=== PATIENT | female | born 2000 | race Caucasian/White ===

== ENCOUNTER 2025-07-18 11:26 | Inpatient (IN) ==
--- NOTE | 2025-07-18 12:08 | Emergency Department Note ---
Impression & Plan Multifocal pneumonia, Headache, Chest pain ED Provider Note NAME: SERVANDO LUBIN AGE: 24 SEX: Female INFORMANT: Patient ED PROVIDER(S): Juarez Torres MD CHIEF COMPLAINT: Chest pain and headache PLAN: Disposition: Admitted Outpatient prescription management: none Referral: None MEDICAL DECISION MAKING: Patient presented because of chest pain and headache. Headache was lancinating intermittent. Her ECG showed tachycardia without ischemia or pericarditis. Chest x-ray was concerning for rather significant pneumonia. Patient had a leukocytosis and elevated inflammatory markers. D-dimer was also elevated. Cardiac troponin negative. In light of the findings patient underwent CT and CT angiography of the head, neck as well as the chest. CT imaging of the head and neck negative. BioFire testing negative. On chest CT patient was found to have a multifocal pneumonia with some cavitation. Placed on isolation precautions. Cultures and QuantiFERON were also ordered. Patient was treated with IV cefepime, vancomycin, and doxycycline. She was also given a dose of IV Toradol. Reviewed the findings with the patient and mother. Patient had consultation made with the [facility] hospitalist service. Discussed case with Dr. Heaton. Reviewed the findings. She did evaluate the patient in the ER and admitted to her for further management. Care/management discussed with: ED pharmacist, hospitalist, facility operations manager Level of care consideration(s): After review of the information above and other included data, I feel the patient requires escalation of care to admission Triage Nursing notes: reviewed and agree them. Vital Signs: reviewed and remarkable for tachycardia Additional History obtained from: Patient's mother. No headache or pulmonary history in the family. Chronic Medical/Social Conditions affecting care: PCOS Prior/ Outside/ External records reviewed: none Differential Diagnosis: Infection, dehydration, metabolic abnormality, hypo/hyperglycemia, electrolyte disturbance, anemia, hypoxia, cardiac sources, intracerebral event, toxicologic, neurologic, as well as other pathologies. Diagnostics, independently interpreted by me: ECG: Twelve-lead ECG reveals a sinus tachycardia at [address] elevation or depression. No PACs PVCs. No pericarditis. Cardiac Monitoring: Cardiac monitoring ordered by me: The patient was placed on continuous cardiac monitoring and observed. It revealed a sinus tachycardia at 106 beats per minute without ectopy or evidence of dysrhythmia. Medical decision rules: none Imaging studies: X-ray and CT scans as above. HPI: 24 year old Female arrives for evaluation of chest pain and headache. This started 7 days ago and is intermittent for the headache and constant for chest pain for 48 hrs. Notes a fever of 101.5. The patient also notes the following associated symptoms, fatigue. The patient has used motrin for relieving factors. Current pain is rated as 5/10. Pain in head described as lancinating, sharp and lasts 1-5 second behind right ear. Pt denies LOC, visual changes, neck pain, chest pain, breathing difficulties, nausea, vomiting, abdominal pain, back pain, melena, hematochezia, urinary symptoms, numbness, weakness, lymphadenopathy, rash, or other complaints. PAST MEDICAL HISTORY: See Below, PCOS, anemia PAST SURGICAL HISTORY: See Below, cholecystectomy SOCIAL HISTORY: See Below, no smoking HOME MEDICATIONS: See Below ALLERGIES: See Below VITALS: See Below PHYSICAL EXAMINATION: GENERAL: Awake, alert, well-appearing, in no distress HENT: Normocephalic, atraumatic. Oropharynx unremarkable. EYES: Normal conjunctiva. Sclera non-icteric. PERRL, EOMI, Fundi normal. NECK: Inspection normal. Non-tender. Supple. No nuchal rigidity. FROM. No masses. RESPIRATORY: Clear to auscultation. No wheezes. No rales. Normal respiratory effort. CARDIAC: Normal rate. Normal rhythm. No murmurs. No rubs. Extremities warm and well perfused. Pulses equal. No JVD. GI: Soft, non-distended. No tenderness to palpation. No rebound or guarding. No masses. RECTAL: Deferred. MUSCULOSKELETAL: Atraumatic. Chest examination reveals no tenderness. The back is symmetrical on inspection without obvious abnormality. There is no CVA tenderness to palpation. No joint edema. LOWER EXTREMITIES: Calves are equal size bilaterally and non-tender. No edema. No discoloration. NEURO: Normal sensorium. No sensory or motor deficits noted. Speech normal. CN2-12 intact. No drift. SKIN: No rash or jaundice noted. PROCEDURES: none CRITICAL CARE: none OBSERVATION NOTE: none Past Med/Surg History Problem List (Updated 07/18/25 @ 19:42 by Juarez Torres MD) Multifocal pneumonia (Acute) Pleuritic chest pain Microcytic anemia Pulmonary cavitary lesion Chest pain (Acute) Headache (Acute) Medical History (Updated 07/18/25 @ 19:42 by Juarez Torres MD) Obesity Anemia PCOS (polycystic ovarian syndrome) Adenomyosis Surgical History (Updated 07/18/25 @ 16:05 by Annmarie Heaton MD) History of wisdom tooth extraction S/P cholecystectomy Family History (Updated 07/18/25 @ 16:06 by Annmarie Heaton MD) Other Hypertension Social History Smoking Status: Never smoker Second Hand Exposure: Yes (When she was living with parents); Hx Alcohol Use: No Hx Substance Use: No Preferred Language: Lao Rn Cardiac Rehab Required: No Beliefs That Will Affect Care: None Current Living Situation: Spouse and Family Feels Safe at Home: Yes Safety Concerns: Feels Safe At This Time Assistive Devices: None Allergies Allergies Allergy/AdvReac Type Severity Reaction Status Date / Time No Known Allergies Allergy Unverified 07/18/25 13:09 Home Meds Home Medications Medication Instructions Recorded Confirmed No Known Home Medications 07/18/25 07/18/25 Results & Data (ED) Vital Signs Vital Signs - 24 hr 07/18/25 11:27 07/18/25 11:28 07/18/25 11:45 Temperature 36.9 C Temperature Source Temporal Artery Scan Pulse Rate 111 H 104 H Pulse Rate from SpO2 Sensor Respiratory Rate 18 29 H Respiratory Effort / Characteristics Non-Labored Spontaneous Respiratory Depth Normal Respiratory Pattern Regular Blood Pressure 138/89 146/96 H Blood Pressure Mean 105 112 Pulse Oximetry 100 Oxygen Delivery Method Room Air Room Air Sepsis Recent Fever Within 48 Hours No Sepsis New/Unexplained Change in Mental Status N/A Sepsis Action Taken by Nursing No Action Required 07/18/25 11:49 07/18/25 11:53 07/18/25 12:31 Temperature Temperature Source Pulse Rate 104 H 98 H Pulse Rate from SpO2 Sensor Respiratory Rate 26 H Respiratory Effort / Characteristics Respiratory Depth Respiratory Pattern Blood Pressure 128/85 Blood Pressure Mean 91 Pulse Oximetry 96 99 Oxygen Delivery Method Sepsis Recent Fever Within 48 Hours Sepsis New/Unexplained Change in Mental Status Sepsis Action Taken by Nursing 07/18/25 13:00 07/18/25 14:06 07/18/25 14:53 Temperature Temperature Source Pulse Rate 96 H 98 H 111 H Pulse Rate from SpO2 Sensor 97 H 111 H Respiratory Rate 30 H 20 21 Respiratory Effort / Characteristics Respiratory Depth Respiratory Pattern Blood Pressure 123/71 119/83 123/69 Blood Pressure Mean 88 92 87 Pulse Oximetry 99 99 99 Oxygen Delivery Method Sepsis Recent Fever Within 48 Hours Sepsis New/Unexplained Change in Mental Status Sepsis Action Taken by Nursing 07/18/25 14:57 Temperature Temperature Source Pulse Rate Pulse Rate from SpO2 Sensor Respiratory Rate Respiratory Effort / Characteristics Respiratory Depth Respiratory Pattern Blood Pressure Blood Pressure Mean Pulse Oximetry Oxygen Delivery Method Room Air Sepsis Recent Fever Within 48 Hours Sepsis New/Unexplained Change in Mental Status Sepsis Action Taken by Nursing Laboratory Data 07/18/25 12:20 07/18/25 12:20 Lab Results 07/18/25 07/18/25 07/18/25 Range/Units 12:20 12:50 14:12 WBC 13.60 H (4.8-10.8) K/ul RBC 3.88 L (4.20-5.40) M/uL Hgb 9.5 L (12.0-16.0) g/dl Hct 30.7 L (37.0-47.0) % MCV 79.1 L (80.0-100.0) fL MCH 24.5 L (25.0-34.0) pg MCHC 30.9 L (32.0-36.0) g/dL RDW Std Deviation 40.5 (36.4-46.3) fL RDW Coeff of Charles 14.1 (11.5-14.5) % Plt Count 384 (130-400) K/uL MPV 9.5 (9.4-12.4) fL Immature Gran % (Auto) 0.6 % Neut % (Auto) 75.0 % Lymph % (Auto) 12.4 % [place] % (Auto) 5.7 % Eos % (Auto) 6.1 % Baso % (Auto) 0.2 % Reticulocyte % (Auto) 1.51 (0.50-2.00) % Neut # (Auto) 10.19 H (1.40-6.50) K/uL Lymph # (Auto) 1.69 (1.20-3.40) K/uL [place] # (Auto) 0.78 H (0.11-0.59) K/uL Eos # (Auto) 0.83 H (0.00-0.50) K/uL Baso # (Auto) 0.03 (0.00-0.20) K/uL Reticulocyte # 0.050 (0.020-0.100) 10^6/uL Immature Gran # (Auto) 0.08 (0.01-0.20) K/uL ESR 98 H (0-20) mm/hr Immature Retic Fraction 19.0 H (2.3-15.9) % Retic Hgb Content 20.4 L (28.2-36.6) pg D-Dimer 710 H* (0-500) ug/L FEU Sodium 136 (136-145) mmol/L Potassium 4.1 (3.5-5.1) mmol/L Chloride 102 (98-107) mmol/L Carbon Dioxide 28 (21-32) mmol/L Anion Gap 6 (3-11) BUN 7 (6-23) mg/dl Creatinine 0.76 (0.6-1.2) mg/dl Est Cr Clr Drug Dosing 138.2 ml/min eGFR 110.76 BUN/Creatinine Ratio 9.2 L (10-20) Glucose 99 (70-99(Fasting)) mg/dl Calcium 9.5 (8.6-10.3) mg/dl Total Bilirubin 0.6 (0.2-1.0) mg/dl AST 27 (13-39) U/L ALT 27 (7-52) U/L Alkaline Phosphatase 125 H (34-104) U/L Troponin I High Sens 4.5 (0-14) pg/ml C-Reactive Protein 10.26 H (0-0.5) mg/dl Total Protein 8.4 H (6.0-8.3) gm/dl Albumin 3.8 (3.4-5.0) gm/dl Globulin 4.6 H (2.5-4.0) gm/dl Albumin/Globulin Ratio 0.8 L (0.9-2) Lipase 4 L (11-82) U/L Procalcitonin 0.07 (0-0.5) ng/ml HCG, Qual Negative (Negative) Adenovirus (PCR) Not Detected (NotDetected) Anaplasma Smear See Comment B. pertussis DNA (PCR) Not Detected (NotDetected) B.parapertussis DNA PCR Not Detected (NotDetected) Lyme Disease Screen Negative (Negative) C. pneumoniae DNA (PCR) Not Detected (NotDetected) Coronavirus OC43 (PCR) Not Detected (NotDetected) Coronavirus HKU1 (PCR) Not Detected (NotDetected) Coronavirus 229E (PCR) Not Detected (NotDetected) SARS-CoV-2 (PCR) Not Detected (NotDetected) Coronavirus NL63 (PCR) Not Detected (NotDetected) Human Metapneumovir PCR Not Detected (NotDetected) Influenza Type A (PCR) Not Detected (NotDetected) Influenza Type B (PCR) Not Detected (NotDetected) M. pneumoniae (PCR) Not Detected (NotDetected) Parainfluenza 1 (PCR) Not Detected (NotDetected) Parainfluenza 2 (PCR) Not Detected (NotDetected) Parainfluenza 3 (PCR) Not Detected (NotDetected) Parainfluenza 4 (PCR) Not Detected (NotDetected) RSV (PCR) Not Detected (NotDetected) Entero/Rhino (PCR) Not Detected (NotDetected) Administered Medications Diphenhydramine HCl (Diphenhydramine 50 Mg/Ml Vial) 25 mg IV Q6H PRN PRN Reason: Headache Stop: 08/17/25 16:50 Last Admin: 07/18/25 18:18 Dose: 25 mg Documented By: MEENA Sodium Chloride (Nss) 1,000 mls @ 125 mls/hr IV .Q8H SAM Stop: 07/19/25 00:29 Last Admin: 07/18/25 17:31 Dose: 125 mls/hr Documented By: MEENA Piperacillin Sod/Tazobactam Sod (Zosyn) 4.5 gm in 100 mls @ 25 mls/hr IV Q8H SAM; Protocol Stop: 07/23/25 16:59 Last Admin: 07/18/25 18:11 Dose: 25 mls/hr Documented By: MEENA Discontinued Medications Sodium Chloride (Nss) 1,000 mls @ 999 mls/hr IV .Q1H1M STA Stop: 07/18/25 12:33 Last Infusion: 07/18/25 13:33 Dose: Infused Documented By: Admin: 07/18/25 12:32 Dose: 999 mls/hr Documented By: BIANKA Sodium Chloride (Nss) 1,000 mls @ 999 mls/hr IV .Q1H1M ONE Stop: 07/18/25 14:26 Last Infusion: 07/18/25 17:41 Dose: Infused Documented By: Admin: 07/18/25 14:01 Dose: 999 mls/hr Documented By: ALEXIS Cefepime HCl (Maxipime 2000mg) 2,000 mg in 20 mls @ 5 mls/min IV NOW STA; Protocol Stop: 07/18/25 14:02 Last Admin: 07/18/25 14:43 Dose: 5 mls/min Documented By: BIANKA Doxycycline Hyclate 100 mg/ (Dextrose) 100 mls @ 50 mls/hr IV NOW STA Stop: 07/18/25 15:58 Last Infusion: 07/18/25 17:42 Dose: Infused Documented By: Admin: 07/18/25 14:51 Dose: 50 mls/hr Documented By: BIANKA Vancomycin HCl 2,750 mg/ (Sodium Chloride) 555 mls @ 200 mls/hr IV NOW ONE Stop: 07/18/25 17:10 Last Infusion: 07/18/25 18:29 Dose: Infused Documented By: Admin: 07/18/25 14:49 Dose: 200 mls/hr Documented By: BIANKA Ioversol (Optiray 320 125ml) 120 ml IV ONCE ONE Stop: 07/18/25 13:58 Last Admin: 07/18/25 13:57 Dose: 120 ml Documented By: VALENTINA Ketorolac Tromethamine (Ketorolac Tromethamine 15 Mg/Ml Vial) 15 mg IV NOW ONE Stop: 07/18/25 13:27 Last Admin: 07/18/25 14:01 Dose: 15 mg Documented By: ALEXIS Imaging Data Radiologist's Impression: Chest X-Ray 07/18/25 11:34 SINGLE VIEW CHEST CLINICAL HISTORY: Chest pain FINDINGS: An AP, portable, upright chest radiograph is obtained. No prior studies are available for comparison at the time of dictation. The cardiomediastinal silhouette is unremarkable. Airspace consolidation is seen throughout the right mid to lower lung and at the left lung base. No large pleural effusion or pneumothorax is identified. The bony thorax is grossly intact. IMPRESSION: 1. Airspace consolidation in the right mid to lower lung is typical for pneumonia. Clinical correlation will be required and radiographic follow-up to resolution is recommended. 2. There is also mild consolidative change at the left lung base. ACT 112: Negative or not required by law. Electronically signed by: Deric Burton M.D. 07/18/2025 1:29 PM Chest CTA 07/18/25 13:26 CT pulmonary angiogram with IV contrast History: Chest pain COMPARISON: None TECHNIQUE: CT angiography of the chest was performed without IV contrast followed by IV contrast, including 3D post processing CTA image reconstruction. Dose reduction techniques were achieved by using automatic exposure control and/or adjustment of mA and/or kV according to patient size and/or use of iterative reconstruction technique. FINDINGS: Diagnostic quality: Adequate There is no evidence for pulmonary embolism. The heart is not enlarged. There is no pericardial effusion. Mildly prominent right hilar lymph nodes and right paratracheal lymph nodes, which may be reactive. The central tracheobronchial tree is clear. Probably, rounded consolidative opacities are seen throughout the right upper lobe. A few of these nodules demonstrate a tiny focus of internal cavitation. There is no pleural effusion. Limited visualized upper abdomen. No destructive osseous changes are seen. IMPRESSION: No evidence for pulmonary embolism. Prominent nodular opacities throughout the right upper lobe, a few with a tiny focus of cavitation, likely are infectious. Mild right hilar and right mediastinal lymphadenopathy may be reactive. Electronically signed by Alverto Carlson 07-18-2025 2:20 PM Head CTA 07/18/25 13:[address] without contrast CT angiogram of the neck CT angiogram of the brain with contrast Provided History: headache Comparison: None Technique: HEAD CT: Using multidetector thin collimation helical acquisition technique, axial, coronal and sagittal CT images from the skull base to the vertex were obtained without intravenous contrast. HEAD and NECK CTA: During rapid bolus intravenous injection of nonionic contrast material, axial images were obtained using thin collimation multidetector helical technique from the base of the neck through the of vertex of the head. This CT angiogram data was reconstructed at thin intervals with mild overlap. 3D reconstructions were obtained. The axial source images, multiplanar reformations, 3D reconstructions in both maximum intensity projection display and volume rendered models were reviewed. Dose reduction techniques were achieved by using automatic exposure control and/or adjustment of mA and/or kV according to patient size and/or use of iterative reconstruction technique. Findings: Head CT: There is no intracranial hemorrhage, mass effect, or midline shift. [place]/white matter differentiation in both cerebral hemispheres is preserved. Ventricles are proportionate to the cerebral sulci. Head CTA demonstrates no aneurysm or stenosis of the major intracranial arteries. Neck CTA demonstrates no stenosis of the major cervical arteries. The origins of the great vessels from the aortic arch are patent. No mass is noted within the visualized portions of the cervical soft tissues or lung apices. Impression: 1. Head CTA demonstrates no aneurysm or stenosis of the major intracranial arteries, 2. Neck CTA demonstrates no stenosis of the major cervical arteries. 3. No intracranial hemorrhage on the noncontrast head CT. Electronically signed by Alverto Carlson 07-18-2025 2:20 PM Neck CTA 07/18/25 13:[address] without contrast CT angiogram of the neck CT angiogram of the brain with contrast Provided History: headache Comparison: None Technique: HEAD CT: Using multidetector thin collimation helical acquisition technique, axial, coronal and sagittal CT images from the skull base to the vertex were obtained without intravenous contrast. HEAD and NECK CTA: During rapid bolus intravenous injection of nonionic contrast material, axial images were obtained using thin collimation multidetector helical technique from the base of the neck through the of vertex of the head. This CT angiogram data was reconstructed at thin intervals with mild overlap. 3D reconstructions were obtained. The axial source images, multiplanar reformations, 3D reconstructions in both maximum intensity projection display and volume rendered models were reviewed. Dose reduction techniques were achieved by using automatic exposure control and/or adjustment of mA and/or kV according to patient size and/or use of iterative reconstruction technique. Findings: Head CT: There is no intracranial hemorrhage, mass effect, or midline shift. [place]/white matter differentiation in both cerebral hemispheres is preserved. Ventricles are proportionate to the cerebral sulci. Head CTA demonstrates no aneurysm or stenosis of the major intracranial arteries. Neck CTA demonstrates no stenosis of the major cervical arteries. The origins of the great vessels from the aortic arch are patent. No mass is noted within the visualized portions of the cervical soft tissues or lung apices. Impression: 1. Head CTA demonstrates no aneurysm or stenosis of the major intracranial arteries, 2. Neck CTA demonstrates no stenosis of the major cervical arteries. 3. No intracranial hemorrhage on the noncontrast head CT. Electronically signed by Alverto Carlson 07-18-2025 2:20 PM Discharge Plan Visit Data Chief Complaint: Chest Pain Stated Complaint: ICE PICK HEADACHES AND CHEST PAIN ED Provider: Juarez Torres Discharge Problem: Multifocal pneumonia, Headache, Chest pain Patient Disposition: Admitted As Inpatient Condition: Serious Discharge Instructions Interventions: ED Discharge Assessment Last Done: 07/18/25 16:15
[2025-07-18] MEDS: SODIUM CHLORIDE 0.9% 1,000 ML IV STA (12:32)
[2025-07-18 12:38] LABS: Hematocrit (blood only) 30.7 % (37.0-47.0); Hemoglobin 9.5 g/dl (12.0-16.0); Immature Granulocytes # (auto) 0.08 K/uL (0.01-0.20); Immature Granulocytes % (auto) 0.6 %; Mean Corpuscular Hemoglobin 24.5 pg (25.0-34.0); Mean Corpuscular Volume 79.1 fL (80.0-100.0); Platelet Count 384 K/uL (130-400); RDW Standard Deviation 40.5 fL (36.4-46.3); Red Blood Count 3.88 M/uL (4.20-5.40); White Blood Count 13.60 K/ul (4.8-10.8)
[2025-07-18 12:55] LABS: Alanine Aminotransferase 27.0 U/L (7-52); Albumin Globulin Ratio 0.8 (0.9-2); Alkaline Phosphatase 125.0 U/L (34-104); Anion Gap 6.0 (3-11); Bilirubin,Total 0.6 mg/dl (0.2-1.0); Blood Urea Nitrogen 7.0 mg/dl (6-23); Calcium 9.5 mg/dl (8.6-10.3); Carbon Dioxide 28.0 mmol/L (21-32); Chloride 102.0 mmol/L (98-107); Creatinine Clr Calc Pharmacy 138.2 ml/min; Globulin 4.6 gm/dl (2.5-4.0); Glucose 99.0 mg/dl (70-99(Fasting)); Lipase 4.0 U/L (11-82); Potassium 4.1 mmol/L (3.5-5.1); Sodium 136.0 mmol/L (136-145); Total Protein 8.4 gm/dl (6.0-8.3)
--- NOTE | 2025-07-18 13:07 | Electrocardiogram Report ---
Test Reason : Blood Pressure : */* mmHG Vent. Rate : 102 BPM Atrial Rate : 102 BPM P-R Int : 116 ms QRS Dur : 74 ms QT Int : 298 ms P-R-T Axes : 55 28 16 degrees QTcB Int : 388 ms Sinus tachycardia Otherwise normal ECG No previous ECGs available Confirmed by Ron Pete ([id number]) on 07/18/2025 1:07:26 PM Referred By: REFERRED SELF Confirmed By: Ron Pete
[2025-07-18 13:08] LABS: Pregnancy Test, Serum Negative (Negative)
--- NOTE | 2025-07-18 13:30 | XRay Report ---
SINGLE VIEW CHEST CLINICAL HISTORY: Chest pain FINDINGS: An AP, portable, upright chest radiograph is obtained. No prior studies are available for c omparison at the time of dictation. The cardiomediastinal silhouette is unremarkable. Airspace consol idation is seen throughout the right mid to lower lung and at the left lung base. No large pleural ef fusion or pneumothorax is identified. The bony thorax is grossly intact. IMPRESSION: 1. Airspace consolidation in the right mid to lower lung is typical for pneumonia. Clinical correlati on will be required and radiographic follow-up to resolution is recommended. 2. There is also mild consolidative change at the left lung base. ACT 112: Negative or not required by law. Electronically signed by: Deric Burton M.D. 07/18/2025 1:29 PM
[2025-07-18] MEDS: OPTIRAY 320 125ml IV ONE (13:57)
[2025-07-18 13:59] LABS: Chlamydia pneumoniae PCR Not Detected (NotDetected); Coronavirus 229E PCR Not Detected (NotDetected); Coronavirus CoV-2 (COVID19)PCR Not Detected (NotDetected); Coronavirus HKU1 PCR Not Detected (NotDetected); Coronavirus NL63 PCR Not Detected (NotDetected); Coronavirus OC43PCR Not Detected (NotDetected); Human Metapneumovirus PCR Not Detected (NotDetected); Parainfluenza Virus 1 PCR Not Detected (NotDetected); Parainfluenza Virus 2 PCR Not Detected (NotDetected); Parainfluenza Virus 3 PCR Not Detected (NotDetected); Parainfluenza Virus 4 PCR Not Detected (NotDetected); Respiratory Syncytial VirusPCR Not Detected (NotDetected); Rhinovirus/Enterovirus PCR Not Detected (NotDetected)
[2025-07-18] MEDS: SODIUM CHLORIDE 0.9% 1,000 ML IV ONE (14:01)
[2025-07-18] MEDS: KETOROLAC TROMETHAMINE 15 MG/ML VIAL IV ONE (14:01)
--- NOTE | 2025-07-18 14:20 | CT Scan Report ---
Head CT without contrast CT angiogram of the neck CT angiogram of the brain with contrast Provided History: headache Comparison: None Technique: HEAD CT: Using multidetector thin collimation helical acquisition technique, axial, coronal and sagittal CT images from the skull base to the vertex were obtained without intravenous contrast. HEAD and NECK CTA: During rapid bolus intravenous injection of nonionic contrast material, axial images were obtained using thin collimation multidetector helical technique from the base of the neck through the of vertex of the head. This CT angiogram data was reconstructed at thin intervals with mild overlap. 3D reconstructions were obtained. The axial source images, multiplanar reformations, 3D reconstructions in both maximum intensity projection display and volume rendered models were reviewed. Dose reduction techniques were achieved by using automatic exposure control and/or adjustment of mA and/or kV according to patient size and/or use of iterative reconstruction technique. Findings: Head CT: There is no intracranial hemorrhage, mass effect, or midline shift. [place]/white matter differentiation in both cerebral hemispheres is preserved. Ventricles are proportionate to the cerebral sulci. Head CTA demonstrates no aneurysm or stenosis of the major intracranial arteries. Neck CTA demonstrates no stenosis of the major cervical arteries. The origins of the great vessels from the aortic arch are patent. No mass is noted within the visualized portions of the cervical soft tissues or lung apices. Impression: 1. Head CTA demonstrates no aneurysm or stenosis of the major intracranial arteries, 2. Neck CTA demonstrates no stenosis of the major cervical arteries. 3. No intracranial hemorrhage on the noncontrast head CT. Electronically signed by Alverto Carlson 07-18-2025 2:20 PM
--- NOTE | 2025-07-18 14:20 | CT Scan Report ---
CT pulmonary angiogram with IV contrast History: Chest pain COMPARISON: None TECHNIQUE: CT angiography of the chest was performed without IV contrast followed by IV contrast, including 3D post processing CTA image reconstruction. Dose reduction techniques were achieved by using automatic exposure control and/or adjustment of mA and/or kV according to patient size and/or use of iterative reconstruction technique. FINDINGS: Diagnostic quality: Adequate There is no evidence for pulmonary embolism. The heart is not enlarged. There is no pericardial effusion. Mildly prominent right hilar lymph nodes and right paratracheal lymph nodes, which may be reactive. The central tracheobronchial tree is clear. Probably, rounded consolidative opacities are seen throughout the right upper lobe. A few of these nodules demonstrate a tiny focus of internal cavitation. There is no pleural effusion. Limited visualized upper abdomen. No destructive osseous changes are seen. IMPRESSION: No evidence for pulmonary embolism. Prominent nodular opacities throughout the right upper lobe, a few with a tiny focus of cavitation, likely are infectious. Mild right hilar and right mediastinal lymphadenopathy may be reactive. Electronically signed by Alverto Carlson 07-18-2025 2:20 PM
[2025-07-18] MEDS ORDERED: VANCOMYCIN CONSULT ACTIVE PRN (14:24)
[2025-07-18] MEDS: CEFEPIME 2000MG 2,000 MG/20 ML SYR IV STA (14:43)
--- NOTE | 2025-07-18 14:48 | History & Physical Report ---
Date of Service July 18, 2025 Assessment & Plan (1) Pleuritic chest pain: (2) Pulmonary cavitary lesion: (3) Microcytic anemia: (4) Headache: Plan Ms Dawson is a 24 year old woman with past medical history remarkable for PCOS, adenomyosis, dysmenorrhea, obesity presented to [facility] ED due to headache and chest pain. Patient does not examine as toxic as one would imagine if changes on imaging were consistent with a bacterial pneumonia, especially iso of procal of 0.07 and wbc similar to prior from 06/20 (12). Plan to consult Pulm for possible bronchoscopy to not only guide any continued antimicrobial therapy, but also #pleuritic chest pain #Multifocal pneumonia with cavitary component #possible sepsis, however suspect other etiology (WBC, tachycardia) No clear infectious symptoms, Biofire negative ESR 98 and CRP 10.26 elevated Procal fairly unimpressive for what would be suspected bacterial process at 0.07 CTA with no PE, prominent nodular opacities, tiny focus of internal cavitation Quantiferon ordered per ED, pending Isolation precautions for now, however, no clear TB risk factors HIV ordered for immunodeficiency UA for proteinuria and renal component ( Cr. stable) SANG & RF ordered vit D 1,25 ordered Blood cultures pending Sputum culture ordered Fungitel, Aspergillus, Coccidioides, legionella, histo ordered MRSA pending Continue Vanc, Broaden to Zosyn empirically Consult Pulm for consideration of bronch/BAL ECHO ordered r/o reason for possible aseptic v septic emboli s/p IVF 2L, continue maintanence 1L @125cc/hr -examined euvolemic admit med/tele #sinus tachycardia suspect multifactorial, given pain/anxiety/noted illness CTA negative for PE monitor on tele continue IVF for now and additional management as above #Headache predominately over right ear ending right before occiput Tylenol po prn migraine cocktial prn q6h (ketorlac, benadryl, reglan) consider neurology v steroids contingent on work up of above #Microcytic anemia reports history of anemia, multifactorial iso adenomyosis/dysmenorrhea TSH ordered Anemia studies for optimization as patient not started on any iron supplementation DVT SCDS for now given possible anticipated bronch as well as recent dysmenorrhea , consider chemoprophylaxis if prolonged hospitalization, encourage ambulation Diet regular Full code Admission and Anticipated Discharge Date Admission Date: Time spent evaluating patient, direct bedside care, chart review, placing orders, interpretation of diagnostic studies, discussion with consultants, patient, and family members, as well as other required patient management activities is 80 minutes. History of Present Illness Chief Complaint: chest pain, headache Primary Care Provider: NO PCP Ms Dawson is a 24 year old woman with past medical history remarkable for PCOS, adenomyosis, dysmenorrhea, obesity presented to [facility] ED due to headache and chest pain. Patient states that she has felt generally poor since Saturday of last week, 07/12. She states that she has felt generally fatigued and tired, noting mostly low grade fevers with a TMAX at home of 101.6 F. She notes that come Saturday she started to feel "nerve twinges" on right side of head over her ear, like sharp jabs in which ibuprofen helps. She denies an associated visual disturbance. She states its persistent however with fluctuating intensity. She then notes pleuritic chest pain that started on Saturday--worse with inhalation and sharp/stabbing in nature. Ultimately, the persistent pleuritic pain and headache prompted her presentation. She denies cough, palpitations, sputum production of any kind, sinus congestion. Reports general malaise and sweats only after she takes ibuprofen. Denies any urinary or bowel changes. Denies any joint aches or pains. She notes that she does not take medications. She was recently diagnosed with anemia and adenomyosis after 3 months of constant bleeding. She underwent biopsy on 07/07 and stopped bleeding on 07/12. She is not on any medications or any supplements. She reports stable weight. She does not have a family history of heart disease, lung disease, malignancy, or autoimmune/bleeding disorders. She denies any recent travel of any kind, she denies sick contacts. Her kids do not attend daycare. She is not exposed to high risk populations like homeless or incarcerated. She does not and has never used any inhalational substances, she denies any IV/inhalational drug use. no history of reactive lung disease. Denies dental concerns. Denies rash or skin changes. Denies edema. She uses EtOH occasionally. She is a stay at home mother. On 06/20, labs were obtained by [facility] with WBC at 12 and Hgb 10.5. In the ED, vitals were notable for BP of 110s-140s HR of 90s-110s and O2 sat of high 90s on room air, afebrile Imaging revealed notable nodular opacities on CXR and CT chest with prominent opacities in RUL with some focus of internal cavitation in additional to right hilar and mediastinal LAD; no PE, CTA head/neck wnl Labs with WBC of 13.6, hgb of 9.5, procal 0.07, crp 10.26, ESR 98 , ddimer 710 EKG reviewed with Qtc 388, sinus tachycardia noted ED interventions: vanc, cefepime 2L IVF Patient to be admitted to med/tele for further evaluation and management of pleuritic chest pain iso pulmonary cavitary lesions Allergies Allergy/AdvReac Type Severity Reaction Status Date / Time No Known Allergies Allergy Unverified 07/18/25 13:09 Home Medications Medication Instructions Recorded Confirmed Type No Known Home Medications 07/18/25 07/18/25 History Past Med/Surg History Problem List (Updated 07/18/25 @ 16:05 by Annmarie Heaton MD) Pleuritic chest pain Microcytic anemia Pulmonary cavitary lesion Chest pain (Acute) Headache (Acute) Medical History (Updated 07/18/25 @ 16:05 by Annmarie Heaton MD) Obesity Anemia PCOS (polycystic ovarian syndrome) Adenomyosis Surgical History (Updated 07/18/25 @ 16:05 by Annmarie Heaton MD) History of wisdom tooth extraction S/P cholecystectomy Family History (Updated 07/18/25 @ 16:06 by Annmarie Heaton MD) Other Hypertension Social History Smoking Status: Never smoker Preferred Language: Maldivian Feels Safe at Home: Yes Review of Systems Review of Systems: Constitutional: (+) fever/chills, (-) recent loss of weight, (-) appetite changes, (-) night sweats. Head: (+) headache, (-) dizziness. Eye: (-) blurring of vision, (-) double vision, (-) redness. Ear: (-) hearing loss, (-) discharge, (-) vertigo Nose: (-) discharge, (-) bleeding, (-) congestion, (-) post nasal drip. Throat: (-) sore throat, (-) hoarseness of voice, (-) odynophagia. Cardiovascular: (+) chest pain, inhalational (-) palpitations, (-) syncope, (-) orthopnea, (-) PND, (-) leg swelling. Respiratory: (-) shortness of breath, (-) cough, (-) wheezing, (-) hemoptysis. Neuro: (-) weakness in extremities, (-) numbness, (-) tingling, (-) tremor. Gastrointestinal: (-) belly pain, (-) belly distension, (-) nausea, (-) vomiting, (-) diarrhea, (-) constipation Genitourinary: (-) hematuria, (-) dysuria, (-) polyuria, (-) hesitancy, (-) frequency, (-) urinary incontinence. Musculoskeletal: (-) myalgia, (-) arthralgia. Skin: (-) rashes. Endocrine: (-) heat/cold intolerance. Psychiatry: (-) depression, (-) hallucination. Physical Exam Physical Exam: GENERAL APPEARANCE: AxOx4, generally well-appearing Female, no acute distress. HEENT: NC, AT. MMM. EOMI, pale conjunctiva, oropharynx clear. NECK: Supple without lymphadenopathy. No stiffness or restricted ROM. HEART: tachycardic, normal S1/S1, no m/r/g LUNGS: CTAB, moving air well. No crackles or wheezes are heard. good airway entry ABDOMEN: Soft, nontender, nondistended with good bowel sounds heard. BACK: No CVAT, no obvious deformity. EXTREMITIES: Without cyanosis, clubbing or edema. NEUROLOGICAL: Grossly nonfocal. Alert and oriented, moving all 4 extremities. CN not formally tested but appear grossly intact. Skin: Warm and dry without any rash. Results & Data Results & Data Vital Signs (Past 12 Hours) Vital Signs Temp Pulse Resp BP Pulse Ox O2 Del Method 07/18/25 14:06 98 H 20 119/83 99 07/18/25 13:00 96 H 30 H 123/71 99 07/18/25 12:31 98 H 26 H 128/85 99 07/18/25 11:53 96 07/18/25 11:49 104 H 07/18/25 11:45 104 H 29 H 146/96 H 07/18/25 11:28 36.9 C 111 H 18 138/89 100 Room Air Laboratory Results Short CBC 07/18/25 Range/Units 12:20 WBC 13.60 H (4.8-10.8) K/ul Hgb 9.5 L (12.0-16.0) g/dl Hct 30.7 L (37.0-47.0) % Plt Count 384 (130-400) K/uL BMP 07/18/25 12:20 Sodium 136 Potassium 4.1 Chloride 102 Carbon Dioxide 28 BUN 7 Creatinine 0.76 Glucose 99 Calcium 9.5 Liver Function 07/18/25 Range/Units 12:20 Total Bilirubin 0.6 (0.2-1.0) mg/dl AST 27 (13-39) U/L ALT 27 (7-52) U/L Alkaline Phosphatase 125 H (34-104) U/L Albumin 3.8 (3.4-5.0) gm/dl Medications Administered Home Medications Medication Instructions Recorded Confirmed Last Taken No Known Home Medications 07/18/25 07/18/25 Unknown Active Medications Generic Name Dose Route Start Last Admin Trade Name Freq PRN Reason Stop Dose Admin Vancomycin HCl 2,750 mg/ 555 mls @ 200 mls/hr 07/18/25 14:24 07/18/25 14:49 Sodium Chloride IV 07/18/25 17:10 200 mls/hr NOW ONE Administration
[2025-07-18] MEDS: VANCOMYCIN HCL 2,750 MG in SODIUM CHLORIDE 0.9% 500 ML IV ONE (14:49)
[2025-07-18] MEDS: DOXYCYCLINE HYCLATE 100 MG in DEXTROSE 5% MINI-B 100 ML IV STA (14:51)
[2025-07-18 15:18] LABS: Reticulated Hemoglobin 20.4 pg (28.2-36.6); Reticulocytes # 0.050 10^6/uL (0.020-0.100)
[2025-07-18 16:19] LABS: Iron 10.0 mcg/dl (35-150); Total Iron Binding Cap Calc 311.0 mcg/dl (250-450); Transferrin 222.0 mg/dl (200-360); Transferrin (FE) Percent Satur 3.0 % (15-50)
[2025-07-18 16:34] LABS: Thyroid Stimulating Hormone 1.756 uIu/ml (0.300-4.500)
[2025-07-18 16:40] LABS: Ferritin 40.0 ng/ml (8-388)
[2025-07-18 16:45] LABS: Folate (Folic Acid),Ser orPlas > 22.30 ng/ml (>5.38); Vitamin B12 193 pg/ml (180-914)
[2025-07-18] MEDS ORDERED: POLYETHYLENE (MIRALAX) 17 GM PACK PO PRN (16:51)
[2025-07-18] MEDS ORDERED: ONDANSETRON INJ 2 MG/ML 2 ML VIAL IV PRN (16:51)
[2025-07-18] MEDS ORDERED: ZOLPIDEM TARTRATE 5 MG TAB PO PRN (16:51)
[2025-07-18 17:23] LABS: Appearance Urine Clear (Clear); Bacteria Urine Automated 1+ (None Seen); Cast Urine Automated 0-2 /lpf (0-2); Glucose Urine UA Negative (Negative); WBC Urine Automated 21-50 /hpf (0-5)
[2025-07-18] MEDS: SODIUM CHLORIDE 0.9% 1,000 ML IV SCH (17:31)
[2025-07-18] MEDS: PIPERACILLIN/TAZOBACTAM 4.5 GM/100 ML BAG IV SCH (18:11)
[2025-07-18] MEDS: diphenhydrAMINE 50 MG/ML VIAL IV PRN (18:18)
[2025-07-18] MEDS: METOCLOPRAMIDE HCL INJ 5 MG/ML 2 ML VIAL IV PRN (19:45)
[2025-07-18] MEDS: KETOROLAC TROMETHAMINE 15 MG/ML VIAL IV PRN (19:46)
[2025-07-19] MEDS: VANCOMYCIN HCL 1,000 MG/270 ML BAG IV SCH (00:14)
[2025-07-19] MEDS: ACETAMINOPHEN 325 MG TAB PO PRN (03:34)
[2025-07-19 07:04] LABS: Creatinine Clr Calc Pharmacy 134.2 ml/min
[2025-07-19 07:38] LABS: Hematocrit (blood only) 25.5 % (37.0-47.0); Hemoglobin 8.2 g/dl (12.0-16.0); Immature Granulocytes # (auto) 0.06 K/uL (0.01-0.20); Immature Granulocytes % (auto) 0.5 %; Mean Corpuscular Hemoglobin 25.9 pg (25.0-34.0); Mean Corpuscular Volume 80.7 fL (80.0-100.0); Platelet Count 349 K/uL (130-400); RDW Standard Deviation 41.0 fL (36.4-46.3); Red Blood Count 3.16 M/uL (4.20-5.40); White Blood Count 11.36 K/ul (4.8-10.8)
--- NOTE | 2025-07-19 08:39 | Pharmacy Report ---
Pharmacy PK ABX Note - Date of Service July 19, 2025 - Assessment and Plan Assessment 24 year old F receiving Vancomycin and Zosyn for treatment of cavitary pneumonia. * Day #2 of antimicrobial therapy. * One time fever of 39.2oC overnight. Mild leukocytosis that is improving today, WBCs 11.4k. SCr stable at 0.79 mg/dL. Procalcitonin was 0.07 ng/mL. * MRSA nasal swab and respiratory biofire were negative. Blood and urine cultures pending. CT chest showed cavitary lesions that are likely infectious per radiologist's read. Plan Vancomycin * Loading dose: 2750 mg IV x 1 * Maintenance dose: 1000 mg IV every 8 hours * Regimen is predicted to achieve target AUC/ROMEL of 400-600 mg/L.hr * Random level ordered for: 07/20/25 Zosyn * 4.5 g IV every 8 hours Pharmacy will continue to follow and will adjust dose/frequency as necessary. Thank you. Pharmacy has transitioned to AUC monitoring for vancomycin. AUC/ROMEL is the preferred PK/PD target and is associated with decreased risk of nephrotoxicity compared to traditional trough targets.
--- NOTE | 2025-07-19 09:01 | Pulmonary Consultation ---
Date of Consultation July 19, 2025 Assessment & Plan (1) Multifocal pneumonia: (2) Pleuritic chest pain: (3) Pulmonary cavitary lesion: Plan Gaby Dawson is a 24-year-old female with past medical history of obesity, anemia, polycystic ovarian syndrome, or adenomyosis; who presented to [facility] ED on 07/18/2025 for headache and chest pain. Patient states she started feeling unwell on 07/12/2025 with low grade fevers and general malaise. Patient was noted to have leukocytosis with WBC of 13.60 and CRP of 10.26. D-dimer was also elevated at 710. A CTA chest was performed which showed no pulmonary embolism but noted patchy round opacities in the right upper and middle lobes with some cavitation. The patient was given broad spectrum antibiotic with vancomycin and Zosyn. She was admitted to the hospitalist service with pulmonary consulted for further evaluation and management of the right lower lobe pneumonia. Right lower lobe multifocal pneumonia -CTA negative for PE with right upper and middle lobe multifocal pneumonia. -Procalcitonin 0.07. MRSA negative. Low risk for opportunistic or drug resistant pneumonia. -Obtain sputum sample if able. Quantiferon Gold pending. Urine legionella pending. RVP negative. -Will hold on performing bronchoscopy at this time. -On Zosyn and vancomycin empirically for pneumonia. Will deescalate antibiotics to azithromycin and Unasyn while inpatient for CAP coverage. Can change to Augmentin at discharge. -Plan to follow up CT chest in 6-8 weeks. With pulm follow up in clinic. -- Probable HANNA Recommend outpatient polysomnography Thank you for allowing us to participate in this patient's care. Please feel free to reach out with questions or concerns. 48 minutes is the time spent reviewing the chart, obtaining history, performing the physical exam, updating the patient, bedside nurse, and primary team. Supervising Physician Co-Signing Physician Notes 24-year-old female was admitted to the hospital because of headache and chest pain. Past medical history: Polycystic ovarian syndrome, anemia Pulmonary consulted for abnormal chest CT. At the time of examination patient's was in the room Patient said that she has been having issues with chest pain on deep inspiration which has been going on for approximately 5-6 days Subjective fever but no chills Denied any dysuria or headache. No recent travel history No history of incarceration. No known history of tuberculosis exposure. Has 2 kids at home, 2-year old and 4-year-old. They are not sick. Social history: Lifetime non-smoker No pets at home. Constitutional: No acute distress HEENT: EOMI, PERRLA, short thick neck Respiratory system: Good air entry bilaterally, no wheeze, no rhonchi, no crackles CVS: S1-S2 positive, no murmurs or gallops Abdomen: Soft, nontender, nondistended, positive bowel sounds x4, obese Extremities: +2 pulses bilaterally radialis/ dorsalis pedis, no cyanosis, no edema Neuro: Awake alert oriented x3 Psych: Normal mood and affect G/U: No Salazar Skin: Tattoos on the right arm and right anterior chest Plan: CTA chest 07/18/2025 personally reviewed: Nodular consolidative process appreciated in the right upper lobe as well as right middle lobe Minimal right hilar and mediastinal lymphadenopathy 2D echo 07/19/2025: EF 60-65%, RV normal in size and function Absolute eosinophil count 830 on 07/18/2025. I do think she will benefit from montelukast on a daily basis Would recommend to continue with antibiotics with anaerobic coverage. Recommend azithromycin for 5 days as well. QTc 388 on 07/18/2025 Given the nasal MRSA is negative okay to discontinue vancomycin Repeat CT chest in 6-8 weeks. If there is no improvement in the opacities then bronchoscopy could be considered. The probability of tuberculosis is low. Recommend outpatient polysomnography I spent more than 75 minutes looking in the chart, images, discussing the plan of care with the patient, RN as well as primary team Please note the above document was generated using voice recognition software. It may contain grammatical, syntax or spelling errors.Any formal questions or concerns about the content, text or information contained within the body of this dictation should be directly addressed to the provider for clarification. History of Present Illness Reason for Consultation: Right lower lobe pneumonia Attending Physician: Ollie Hanson MD History of Present Illness Gaby Dawson is a 24-year-old female with past medical history of obesity, anemia, polycystic ovarian syndrome, or adenomyosis; who presented to [facility] ED on 07/18/2025 for headache and chest pain. Patient states she started feeling unwell on 07/12/2025 with low grade fevers and general malaise. The patient developed chest pain on 07/14/2025 which did not improve prompting her to seek treatment on 07/18/2025. EKG showed no ischemic changes. CT head was negative for acute intracranial abnormalities. Patient was noted to have leukocytosis with WBC of 13.60 and CRP of 10.26. D-dimer was also elevated at 710. A CTA chest was performed which showed no pulmonary embolism but noted patchy round opacities in the right middle and upper lobes with some cavitation. The patient was given broad spectrum antibiotic with vancomycin and Zosyn. She was admitted to the hospitalist service with pulmonary consulted for further evaluation and management of the right lower lobe pneumonia. Patient is a never smoker. She is a stay at home mom and does not not any recent sick contacts. No recent travel history or hospitalizations. Patient has a dog at home which she has had for the past 6 years. No water damage or exposure to molds. Denies family history of autoimmune disease. Denies joint swellign and rash. She endorses a nonproductive cough. Procalcitonin 0.07. MRSA negative. Allergies Allergy/AdvReac Type Severity Reaction Status Date / Time No Known Allergies Allergy Unverified 07/18/25 13:09 Home Medications Medication Instructions Recorded Confirmed Type No Known Home Medications 07/18/25 07/18/25 History Patient History Medical History (Updated 07/18/25 @ 19:42 by Juarez Torres MD) Obesity Anemia PCOS (polycystic ovarian syndrome) Adenomyosis Surgical History (Updated 07/18/25 @ 16:05 by Annmarie Heaton MD) History of wisdom tooth extraction S/P cholecystectomy Family History (Updated 07/18/25 @ 16:06 by Annmarie Heaton MD) Other Hypertension Social History Smoking Status: Never smoker Second Hand Exposure: Yes (When she was living with parents); Hx Alcohol Use: No Hx Substance Use: No Preferred Language: Kinyarwanda Proofer Prepress Required: No Beliefs That Will Affect Care: None Current Living Situation: Spouse and Family Feels Safe at Home: Yes Safety Concerns: Feels Safe At This Time Assistive Devices: None Review of Systems 2 Review of Systems: All systems reviewed & are unremarkable except as noted in HPI & below Physical Exam 2 Physical Exam: VITALS: Reviewed. WEIGHT/BMI reviewed. GEN: Stated age appearing, well-developed, NAD. PSYCH: Good Judgment. AOx3. Normal memory, mood, and affect. HEENT -Head: NC/AT; -Eyes: PERRL, EOMI. No discharge or redn ess; -Ears: External ears are normal. -Nose: Normal nares. NECK: Supple, with no masses. CV: RRR, no m/r/g. LUNGS: CTAB, no w/r/c. ABD: Soft, NT/ND, NBS, no masses or organomegaly. : N/A SKIN: Warm, well perfused. No skin rashes or abnormal lesions. MSK: No deformities, Normal gait. EXT: No clubbing, cyanosis, or edema. NEURO: Ambulating with no limitations. Normal muscle strength and tone. No focal deficits. Results & Data Results & Data Vital Signs (Past 12 Hours) Vital Signs Temp Pulse Pulse Resp BP Pulse Ox O2 Del Method 07/19/25 07:33 97 H 07/19/25 04:30 37.4 C 07/19/25 03:42 39.2 C H 99 H 20 116/80 100 Room Air 07/19/25 00:28 36.7 C 102 H 20 136/80 96 Room Air 07/18/25 21:44 106 H Laboratory Results 07/19/25 06:07 07/19/25 06:02 Abnormal Lab Results 07/18/25 07/18/25 07/18/25 12:20 12:50 14:12 WBC 13.60 H RBC 3.88 L Hgb 9.5 L Hct 30.7 L MCV 79.1 L MCH 24.5 L MCHC 30.9 L RDW Std Deviation 40.5 RDW Coeff of Charles 14.1 Plt Count 384 MPV 9.5 Immature Gran % (Auto) 0.6 Neut % (Auto) 75.0 Lymph % (Auto) 12.4 [place] % (Auto) 5.7 Eos % (Auto) 6.1 Baso % (Auto) 0.2 Reticulocyte % (Auto) 1.51 Neut # (Auto) 10.19 H Lymph # (Auto) 1.69 [place] # (Auto) 0.78 H Eos # (Auto) 0.83 H Baso # (Auto) 0.03 Reticulocyte # 0.050 Immature Gran # (Auto) 0.08 ESR 98 H Immature Retic Fraction 19.0 H Retic Hgb Content 20.4 L D-Dimer 710 H* Sodium 136 Potassium 4.1 Chloride 102 Carbon Dioxide 28 Anion Gap 6 BUN 7 Creatinine 0.76 Est Cr Clr Drug Dosing 138.2 eGFR 110.76 BUN/Creatinine Ratio 9.2 L Glucose 99 Calcium 9.5 Iron TIBC Transferrin Transferrin % Sat Ferritin Total Bilirubin 0.6 AST 27 ALT 27 Alkaline Phosphatase 125 H Troponin I High Sens 4.5 C-Reactive Protein 10.26 H Total Protein 8.4 H Albumin 3.8 Globulin 4.6 H Albumin/Globulin Ratio 0.8 L Lipase 4 L Vitamin B12 25-OH Vitamin D Total Folate Procalcitonin 0.07 TSH HCG, Qual Negative Urine Color Urine Appearance Urine pH Ur Specific [place] Urine Protein Urine Glucose (UA) Urine Ketones Urine Blood Urine Nitrite Urine Bilirubin Urine Urobilinogen Ur Leukocyte Esterase Urine WBC (Auto) Urine RBC (Auto) U Hyaline Cast (Auto) U Epithel Cells (Auto) Urine Bacteria (Auto) Urine Comment Nasal Screen MRSA (PCR) Adenovirus (PCR) Not Detected Anaplasma Smear See Comment B. pertussis DNA (PCR) Not Detected B.parapertussis DNA PCR Not Detected Lyme Disease Screen Negative C. pneumoniae DNA (PCR) Not Detected Coronavirus OC43 (PCR) Not Detected Coronavirus HKU1 (PCR) Not Detected Coronavirus 229E (PCR) Not Detected SARS-CoV-2 (PCR) Not Detected Coronavirus NL63 (PCR) Not Detected HIV 1&2 Ab/P24 Ag 4thGn Human Metapneumovir PCR Not Detected Influenza Type A (PCR) Not Detected Influenza Type B (PCR) Not Detected M. pneumoniae (PCR) Not Detected Parainfluenza 1 (PCR) Not Detected Parainfluenza 2 (PCR) Not Detected Parainfluenza 3 (PCR) Not Detected Parainfluenza 4 (PCR) Not Detected RSV (PCR) Not Detected Entero/Rhino (PCR) Not Detected 07/18/25 07/18/25 07/19/25 15:40 Unknown 06:02 WBC RBC Hgb Hct MCV MCH MCHC RDW Std Deviation RDW Coeff of Charles Plt Count MPV Immature Gran % (Auto) Neut % (Auto) Lymph % (Auto) [place] % (Auto) Eos % (Auto) Baso % (Auto) Reticulocyte % (Auto) Neut # (Auto) Lymph # (Auto) [place] # (Auto) Eos # (Auto) Baso # (Auto) Reticulocyte # Immature Gran # (Auto) ESR Immature Retic Fraction Retic Hgb Content D-Dimer Sodium Potassium Chloride Carbon Dioxide Anion Gap BUN Creatinine 0.79 Est Cr Clr Drug Dosing 134.2 eGFR 105.73 BUN/Creatinine Ratio Glucose Calcium Iron 10 L TIBC 311 Transferrin 222 Transferrin % Sat 3 L Ferritin 40.0 Total Bilirubin AST ALT Alkaline Phosphatase Troponin I High Sens C-Reactive Protein Total Protein Albumin Globulin Albumin/Globulin Ratio Lipase Vitamin B12 193 25-OH Vitamin D Total 8.5 L Folate > 22.30 Procalcitonin TSH 1.756 HCG, Qual Urine Color Yellow Urine Appearance Clear Urine pH 6.5 Ur Specific [place] > 1.045 H Urine Protein Negative Urine Glucose (UA) Negative Urine Ketones Negative Urine Blood 2+ H Urine Nitrite Negative Urine Bilirubin Negative Urine Urobilinogen Negative Ur Leukocyte Esterase 1+ H Urine WBC (Auto) 21-50 H Urine RBC (Auto) 6-10 H U Hyaline Cast (Auto) 0-2 U Epithel Cells (Auto) 3-5 H Urine Bacteria (Auto) 1+ H Urine Comment Nasal Screen MRSA (PCR) Negative Adenovirus (PCR) Anaplasma Smear B. pertussis DNA (PCR) B.parapertussis DNA PCR Lyme Disease Screen C. pneumoniae DNA (PCR) Coronavirus OC43 (PCR) Coronavirus HKU1 (PCR) Coronavirus 229E (PCR) SARS-CoV-2 (PCR) Coronavirus NL63 (PCR) HIV 1&2 Ab/P24 Ag 4thGn Negative Human Metapneumovir PCR Influenza Type A (PCR) Influenza Type B (PCR) M. pneumoniae (PCR) Parainfluenza 1 (PCR) Parainfluenza 2 (PCR) Parainfluenza 3 (PCR) Parainfluenza 4 (PCR) RSV (PCR) Entero/Rhino (PCR) 07/19/25 06:07 WBC 11.36 H RBC 3.16 L Hgb 8.2 L Hct 25.5 L MCV 80.7 MCH 25.9 MCHC 32.2 RDW Std Deviation 41.0 RDW Coeff of Charles 14.0 Plt Count 349 MPV 9.6 Immature Gran % (Auto) 0.5 Neut % (Auto) 71.4 Lymph % (Auto) 16.4 [place] % (Auto) 8.0 Eos % (Auto) 3.3 Baso % (Auto) 0.4 Reticulocyte % (Auto) Neut # (Auto) 8.11 H Lymph # (Auto) 1.86 [place] # (Auto) 0.91 H Eos # (Auto) 0.37 Baso # (Auto) 0.05 Reticulocyte # Immature Gran # (Auto) 0.06 ESR Immature Retic Fraction Retic Hgb Content D-Dimer Sodium Potassium Chloride Carbon Dioxide Anion Gap BUN Creatinine Est Cr Clr Drug Dosing eGFR BUN/Creatinine Ratio Glucose Calcium Iron TIBC Transferrin Transferrin % Sat Ferritin Total Bilirubin AST ALT Alkaline Phosphatase Troponin I High Sens C-Reactive Protein Total Protein Albumin Globulin Albumin/Globulin Ratio Lipase Vitamin B12 25-OH Vitamin D Total Folate Procalcitonin TSH HCG, Qual Urine Color Urine Appearance Urine pH Ur Specific [place] Urine Protein Urine Glucose (UA) Urine Ketones Urine Blood Urine Nitrite Urine Bilirubin Urine Urobilinogen Ur Leukocyte Esterase Urine WBC (Auto) Urine RBC (Auto) U Hyaline Cast (Auto) U Epithel Cells (Auto) Urine Bacteria (Auto) Urine Comment Nasal Screen MRSA (PCR) Adenovirus (PCR) Anaplasma Smear B. pertussis DNA (PCR) B.parapertussis DNA PCR Lyme Disease Screen C. pneumoniae DNA (PCR) Coronavirus OC43 (PCR) Coronavirus HKU1 (PCR) Coronavirus 229E (PCR) SARS-CoV-2 (PCR) Coronavirus NL63 (PCR) HIV 1&2 Ab/P24 Ag 4thGn Human Metapneumovir PCR Influenza Type A (PCR) Influenza Type B (PCR) M. pneumoniae (PCR) Parainfluenza 1 (PCR) Parainfluenza 2 (PCR) Parainfluenza 3 (PCR) Parainfluenza 4 (PCR) RSV (PCR) Entero/Rhino (PCR) Diagnostic Findings Chest X-Ray 07/18/25 11:34 SINGLE VIEW CHEST CLINICAL HISTORY: Chest pain FINDINGS: An AP, portable, upright chest radiograph is obtained. No prior studies are available for comparison at the time of dictation. The cardiomediastinal silhouette is unremarkable. Airspace consolidation is seen throughout the right mid to lower lung and at the left lung base. No large pleural effusion or pneumothorax is identified. The bony thorax is grossly intact. IMPRESSION: 1. Airspace consolidation in the right mid to lower lung is typical for pneumonia. Clinical correlation will be required and radiographic follow-up to resolution is recommended. 2. There is also mild consolidative change at the left lung base. ACT 112: Negative or not required by law. Electronically signed by: Deric Burton M.D. 07/18/2025 1:29 PM Chest CTA 07/18/25 13:26 CT pulmonary angiogram with IV contrast History: Chest pain COMPARISON: None TECHNIQUE: CT angiography of the chest was performed without IV contrast followed by IV contrast, including 3D post processing CTA image reconstruction. Dose reduction techniques were achieved by using automatic exposure control and/or adjustment of mA and/or kV according to patient size and/or use of iterative reconstruction technique. FINDINGS: Diagnostic quality: Adequate There is no evidence for pulmonary embolism. The heart is not enlarged. There is no pericardial effusion. Mildly prominent right hilar lymph nodes and right paratracheal lymph nodes, which may be reactive. The central tracheobronchial tree is clear. Probably, rounded consolidative opacities are seen throughout the right upper lobe. A few of these nodules demonstrate a tiny focus of internal cavitation. There is no pleural effusion. Limited visualized upper abdomen. No destructive osseous changes are seen. IMPRESSION: No evidence for pulmonary embolism. Prominent nodular opacities throughout the right upper lobe, a few with a tiny focus of cavitation, likely are infectious. Mild right hilar and right mediastinal lymphadenopathy may be reactive. Electronically signed by Alverto Carlson 07-18-2025 2:20 PM Head CTA 07/18/25 13:[address] without contrast CT angiogram of the neck CT angiogram of the brain with contrast Provided History: headache Comparison: None Technique: HEAD CT: Using multidetector thin collimation helical acquisition technique, axial, coronal and sagittal CT images from the skull base to the vertex were obtained without intravenous contrast. HEAD and NECK CTA: During rapid bolus intravenous injection of nonionic contrast material, axial images were obtained using thin collimation multidetector helical technique from the base of the neck through the of vertex of the head. This CT angiogram data was reconstructed at thin intervals with mild overlap. 3D reconstructions were obtained. The axial source images, multiplanar reformations, 3D reconstructions in both maximum intensity projection display and volume rendered models were reviewed. Dose reduction techniques were achieved by using automatic exposure control and/or adjustment of mA and/or kV according to patient size and/or use of iterative reconstruction technique. Findings: Head CT: There is no intracranial hemorrhage, mass effect, or midline shift. [place]/white matter differentiation in both cerebral hemispheres is preserved. Ventricles are proportionate to the cerebral sulci. Head CTA demonstrates no aneurysm or stenosis of the major intracranial arteries. Neck CTA demonstrates no stenosis of the major cervical arteries. The origins of the great vessels from the aortic arch are patent. No mass is noted within the visualized portions of the cervical soft tissues or lung apices. Impression: 1. Head CTA demonstrates no aneurysm or stenosis of the major intracranial arteries, 2. Neck CTA demonstrates no stenosis of the major cervical arteries. 3. No intracranial hemorrhage on the noncontrast head CT. Electronically signed by Alverto Carlson 07-18-2025 2:20 PM Neck CTA 07/18/25 13:[address] without contrast CT angiogram of the neck CT angiogram of the brain with contrast Provided History: headache Comparison: None Technique: HEAD CT: Using multidetector thin collimation helical acquisition technique, axial, coronal and sagittal CT images from the skull base to the vertex were obtained without intravenous contrast. HEAD and NECK CTA: During rapid bolus intravenous injection of nonionic contrast material, axial images were obtained using thin collimation multidetector helical technique from the base of the neck through the of vertex of the head. This CT angiogram data was reconstructed at thin intervals with mild overlap. 3D reconstructions were obtained. The axial source images, multiplanar reformations, 3D reconstructions in both maximum intensity projection display and volume rendered models were reviewed. Dose reduction techniques were achieved by using automatic exposure control and/or adjustment of mA and/or kV according to patient size and/or use of iterative reconstruction technique. Findings: Head CT: There is no intracranial hemorrhage, mass effect, or midline shift. [place]/white matter differentiation in both cerebral hemispheres is preserved. Ventricles are proportionate to the cerebral sulci. Head CTA demonstrates no aneurysm or stenosis of the major intracranial arteries. Neck CTA demonstrates no stenosis of the major cervical arteries. The origins of the great vessels from the aortic arch are patent. No mass is noted within the visualized portions of the cervical soft tissues or lung apices. Impression: 1. Head CTA demonstrates no aneurysm or stenosis of the major intracranial arteries, 2. Neck CTA demonstrates no stenosis of the major cervical arteries. 3. No intracranial hemorrhage on the noncontrast head CT. Electronically signed by Alverto Carlson 07-18-2025 2:20 PM PG Care Time/CCT Total # of Minutes Spent Total Time Spent with Patient: Total time spent is greater than 50% in coordination of care (as documented) at patient's floor/unit and/or counseling patient: Coding Level of Care Code 59572 INT INP/OBS CARE 3/75MIN Diagnoses Multifocal pneumonia J18.8 Pleuritic chest pain R07.81 Pulmonary cavitary lesion J98.4
[2025-07-19] MEDS: ERGOCALCIFEROL 1250 MCG (50,000 UNITS) CAP PO SCH (09:21)
[2025-07-19 11:31] LABS: Quantiferon TB1 0.042 IU/mL; Quantiferon TB2 0.039 IU/mL
[2025-07-19] MEDS: AMPICILLIN/SULBACTAM SOD 3,000 MG/100 ML BAG IV SCH (11:35)
[2025-07-19] MEDS: AZITHROMYCIN 250 MG TAB PO SCH (11:36)
--- NOTE | 2025-07-19 16:33 | Hospitalist Progress Note ---
Date of Service July 19, 2025 Assessment & Plan (1) Pleuritic chest pain: (2) Pulmonary cavitary lesion: (3) Microcytic anemia: (4) Headache: Plan per admitting service notes with addendum: Ms Dawson is a 24 year old woman with past medical history remarkable for PCOS, adenomyosis, dysmenorrhea, obesity presented to [facility] ED due to headache and chest pain. Patient does not examine as toxic as one would imagine if changes on imaging were consistent with a bacterial pneumonia, especially iso of procal of 0.07 and wbc similar to prior from 06/20 (12). Plan to consult Pulm for possible bronchoscopy to not only guide any continued antimicrobial therapy, but also #pleuritic chest pain #Multifocal pneumonia with cavitary component #possible sepsis, however suspect other etiology (WBC, tachycardia) No clear infectious symptoms, Biofire negative ESR 98 and CRP 10.26 elevated Procal fairly unimpressive for what would be suspected bacterial process at 0.07 CTA with no PE, prominent nodular opacities, tiny focus of internal cavitation Quantiferon ordered per ED, pending Isolation precautions for now, however, no clear TB risk factors HIV ordered for immunodeficiency UA for proteinuria and renal component ( Cr. stable) SANG & RF ordered vit D ,25 ordered Blood cultures pending Sputum culture ordered Fungitel, Aspergillus, Coccidioides, legionella, histo ordered MRSA pending Continue Vanc, Broaden to Zosyn empirically Consult Pulm for consideration of bronch/BAL ECHO ordered r/o reason for possible aseptic v septic emboli s/p IVF 2L, continue maintanence 1L @125cc/hr -examined euvolemic admit med/tele 07/19 Hemodynamically stable On room air Blood cultures pending Evaluated by Pulmonology service Highly doubt tuberculosis at this point Antibiotics transition to azithromycin plus Unasyn P.o. Augmentin x 4 weeks and Z-Celso on discharge Repeat chest x-ray in 10 days Follow-up with pulmonary service in 2 weeks #Iron deficiency anemia Recent vaginal bleeding secondary to adenomyosis Iron level 10 Plan for Venofer tomorrow Then p.o. iron twice daily #sinus tachycardia suspect multifactorial, given pain/anxiety/noted illness CTA negative for PE monitor on tele continue IVF for now and additional management as above -resolving #Headache predominately over right ear ending right before occiput Tylenol po prn migraine cocktial prn q6h (ketorlac, benadryl, reglan) consider neurology v steroids contingent on work up of above - Resolved #Microcytic anemia reports history of anemia, multifactorial iso adenomyosis/dysmenorrhea TSH ordered: Normal Anemia studies for optimization as patient not started on any iron supplementati on DVT SCDS for now Diet regular Full code plan of care discussed with patient and in detail and at length all questions answered they are understanding, agreeable, comfortable with the plan of care Admission and Anticipated Discharge Date Admission Date: July 18, 2025 Subjective seen resting in bed, comfortable, in good spirits, sitting up On room air, In good spirits, very pleasant Patient's at the bedside visiting States she feels better overall states breathing is okay, has occasional cough, nonproductive Minimal chest discomfort, right side No dizziness, palpitations no bleeding No other new symptoms Review of Systems Review of Systems: all noted and negative except for above Physical Exam Physical Exam: General- oriented x 3, not in distress, speaks in sentences with no effort or accessory muscle use Eyes- anicteric Neck- no JVD Lungs- mild crackles right upper lobe, no wheezing clear on the left Heart- normal rate, regular rhythm; no murmurs Abdomen- normal bowel sounds, nondistended, soft, nontender Extremities- no pretibial edema, no calf tenderness Neuro- alert, oriented x 3; no gross focal neurologic deficits Skin- warm & dry Results & Data Results & Data Vital Signs (Past 12 Hours) Vital Signs Temp Pulse Pulse Resp BP Pulse Ox O2 Del Method 07/19/25 15:03 36.5 C 95 H 20 136/83 98 Room Air 07/19/25 12:44 36.8 C 99 H 20 140/87 100 Room Air 07/19/25 11:47 Room Air 07/19/25 07:33 97 H 07/19/25 04:30 37.4 C all noted and reviewed including below
[2025-07-20 07:38] VITALS: RESP 18
[2025-07-20] MEDS ORDERED: VANCOMYCIN LEVEL ONE (08:00)
--- NOTE | 2025-07-20 08:09 | Pulmonology Progress Note ---
Date of Service July 20, 2025 Assessment & Plan (1) Multifocal pneumonia: (2) Pleuritic chest pain: (3) Pulmonary cavitary lesion: Danielito Dawson is a 24-year-old female with past medical history of obesity, anemia, polycystic ovarian syndrome, or adenomyosis; who presented to [facility] ED on 07/18/2025 for headache and chest pain. Patient states she started feeling unwell on 07/12/2025 with low grade fevers and general malaise. Patient was noted to have leukocytosis with WBC of 13.60 and CRP of 10.26. D-dimer was also elevated at 710. A CTA chest was performed which showed no pulmonary embolism but noted patchy round opacities in the right upper and middle lobes with some cavitation. The patient was given broad spectrum antibiotic with vancomycin and Zosyn. She was admitted to the hospitalist service with pulmonary consulted for further evaluation and management of the right lower lobe pneumonia. CTA chest 07/18/2025 personally reviewed: Nodular consolidative process appreciated in the right upper lobe as well as right middle lobe Minimal right hilar and mediastinal lymphadenopathy 2D echo 07/19/2025: EF 60-65%, RV normal in size and function Right lower lobe multifocal pneumonia -CTA negative for PE with right upper and middle lobe multifocal pneumonia. -Procalcitonin 0.07. MRSA negative. Low risk for opportunistic or drug resistant pneumonia. -Sputum sample pending. Quantiferon Gold negative. Urine legionella and fungal workup pending. RVP negative. -Will hold on performing bronchoscopy at this time. -Continue with antibiotics azithromycin and Unasyn while inpatient for CAP coverage. Can change Unasyn to Augmentin at discharge. -Plan to follow up CT chest in 6-8 weeks. With pulm follow up in clinic. Probable HANNA Recommend outpatient polysomnography Thank you for allowing us to participate in this patient's care. Please feel free to reach out with questions or concerns. Admission and Anticipated Discharge Date Admission Date: July 18, 2025 Supervising Physician Co-Signing Physician Notes 24-year-old female was admitted to the hospital because of headache and chest pain. Past medical history: Polycystic ovarian syndrome, anemia Pulmonary consulted for abnormal chest CT. Patient seen and examined at bedside. No acute distress, no adverse events overnight Overall she says she is feeling much better compared to before Still little tachycardic. Complaining of mild discomfort when she takes a deep breath in Bringing up clear phlegm. No hemoptysis No nausea or vomiting Fair appetite Has 2 kids at home, 2-year old and 4-year-old. They are not sick. Social history: Lifetime non-smoker No pets at home. Constitutional: No acute distress HEENT: EOMI, PERRLA, short thick neck Respiratory system: Good air entry bilaterally, no wheeze, no rhonchi, no crackles CVS: S1-S2 positive, no murmurs or gallops Abdomen: Soft, nontender, nondistended, positive bowel sounds x4, obese Extremities: +2 pulses bilaterally radialis/ dorsalis pedis, no cyanosis, no edema Neuro: Awake alert oriented x3 Psych: Normal mood and affect G/U: No Salazar Skin: Tattoos on the right arm and right anterior chest Plan: CTA chest 07/18/2025 personally reviewed: Nodular consolidative process appreciated in the right upper lobe as well as right middle lobe Minimal right hilar and mediastinal lymphadenopathy 2D echo 07/19/2025: EF 60-65%, RV normal in size and function Absolute eosinophil count 830 on 07/18/2025. Continue with montelukast on a daily basis even at home Recommend Augmentin for total of 14 days and complete the course of azithromycin for [address] chest in 6-8 weeks. If there is no improvement in the opacities then bronchoscopy could be considered. Recommend outpatient polysomnography Case discussed with primary team No further recommendation from pulmonary perspective, will sign off Please call directly with any questions Please note the above document was generated using voice recognition software. It may contain grammatical, syntax or spelling errors.Any formal questions or concerns about the content, text or information contained within the body of this dictation should be directly addressed to the provider for clarification. Subjective "I am doing well and feeling better." Patient complains of mild chest discomfort with coughing which is improved from admission. SpO2 98-99% on room air. Patient coughing up clear secretions. TB Gold Quantiferon negative. Antibiotics deescelated yesterday to Unasyn and azithromycin. Review of Systems 2 Review of Systems: All systems reviewed & are unremarkable except as noted in HPI & below Physical Exam 2 Physical Exam: VITALS: Reviewed. WEIGHT/BMI reviewed. GEN: Stated age appearing, well-developed, NAD. PSYCH: Good Judgment. AOx3. Normal memory, mood, and affect. HEENT -Head: NC/AT; -Eyes: PERRL, EOMI. No discharge or redn ess; -Ears: External ears are normal. -Nose: Normal nares. NECK: Supple, with no masses. CV: RRR, no m/r/g. LUNGS: CTAB, no w/r/c. ABD: Soft, NT/ND, NBS, no masses or organomegaly. : N/A SKIN: Warm, well perfused. No skin rashes or abnormal lesions. MSK: No deformities, Normal gait. EXT: No clubbing, cyanosis, or edema. NEURO: Normal muscle strength and tone. No focal deficits. Results & Data Results & Data Vital Signs (Past 12 Hours) Vital Signs Temp Pulse Pulse Resp BP BP Pulse Ox 07/20/25 07:37 37.0 C 97 H 18 124/84 97 07/20/25 07:15 103 H 07/20/25 03:48 36.9 C 97 H 20 122/77 97 07/19/25 23:52 36.8 C 100 H 18 119/71 94 07/19/25 21:45 104 H 07/19/25 21:28 O2 Del Method 07/20/25 07:37 Room Air 07/20/25 07:15 07/20/25 03:48 Room Air 07/19/25 23:52 Room Air 07/19/25 21:45 07/19/25 21:28 Room Air Laboratory Results 07/19/25 06:07 07/19/25 06:02 Abnormal Lab Results 07/18/25 14:43 TB Test (QFT) Gold Plus NEGATIVE TB Test (QFT) Nil 0.046 TB Test (QFT) Mitogen 10.000 TB Test (QFT) Ag 1 0.042 TB Test (QFT) Ag 2 0.039 Diagnostic Findings No recent imaging. PG Care Time/CCT Total # of Minutes Spent Total Time Spent with Patient: Total time spent is greater than 50% in coordination of care (as documented) at patient's floor/unit and/or counseling patient: Coding Level of Care Code 84134 SUB INP/OBS CARE 2/35MIN Diagnoses Multifocal pneumonia J18.8 Pleuritic chest pain R07.81 Pulmonary cavitary lesion J98.4
[2025-07-20] MEDS: AZITHROMYCIN 250 MG TAB PO SCH (09:05)
[2025-07-20] MEDS: IRON SUCROSE 300 MG in SODIUM CHLORIDE 0.9% 250 ML IV ONE (09:05)
[2025-07-20] MEDS: ADVANCED PROBIOTIC 625 MG CAPSULE PO SCH (09:05)
[2025-07-20 10:16] LABS: Hematocrit (blood only) 28.1 % (37.0-47.0); Hemoglobin 8.6 g/dl (12.0-16.0); Immature Granulocytes # (auto) 0.12 K/uL (0.01-0.20); Immature Granulocytes % (auto) 1.1 %; Mean Corpuscular Hemoglobin 24.4 pg (25.0-34.0); Mean Corpuscular Volume 79.6 fL (80.0-100.0); Platelet Count 379 K/uL (130-400); RDW Standard Deviation 40.9 fL (36.4-46.3); Red Blood Count 3.53 M/uL (4.20-5.40); White Blood Count 11.08 K/ul (4.8-10.8)
[2025-07-20 10:30] LABS: Alanine Aminotransferase 26.0 U/L (7-52); Albumin Globulin Ratio 0.8 (0.9-2); Alkaline Phosphatase 124.0 U/L (34-104); Anion Gap 6.0 (3-11); Bilirubin,Total 0.5 mg/dl (0.2-1.0); Blood Urea Nitrogen 5.0 mg/dl (6-23); Calcium 9.3 mg/dl (8.6-10.3); Carbon Dioxide 29.0 mmol/L (21-32); Chloride 101.0 mmol/L (98-107); Creatinine Clr Calc Pharmacy 155.5 ml/min; Globulin 4.3 gm/dl (2.5-4.0); Glucose 127.0 mg/dl (70-99(Fasting)); Potassium 3.9 mmol/L (3.5-5.1); Sodium 136.0 mmol/L (136-145); Total Protein 7.8 gm/dl (6.0-8.3)
--- NOTE | 2025-07-20 11:29 | Discharge Summary ---
Discharge Summary Date of Service July 20, 2025 Principal Dx & Hospital Course #1 = Principal Diagnosis (1) Pleuritic chest pain: (2) Pulmonary cavitary lesion: (3) Microcytic anemia: (4) Headache: Plan per admitting service notes with addendum: Ms Dawson is a 24 year old woman with past medical history remarkable for PCOS, adenomyosis, dysmenorrhea, obesity presented to [facility] due to headache and chest pain. #Multifocal pneumonia with cavitary component #possible sepsis, however suspect other etiology (WBC, tachycardia) CT chest: No evidence for pulmonary embolism. Prominent nodular opacities throughout the right upper lobe, a few with a tiny focus of cavitation, likely are infectious. Mild right hilar and right mediastinal lymphadenopathy may be reactive. Electronically signed by Alverto Carlson 07-18-2025 2:20 PM per pulmonology: -CTA negative for PE with right upper and middle lobe multifocal pneumonia. -Procalcitonin 0.07. MRSA negative. Low risk for opportunistic or drug resistant pneumonia. -Sputum sample pending. Quantiferon Gold negative. Urine legionella and fungal workup pending. RVP negative. SANG, Rheumatoid factor: pending -Will hold on performing bronchoscopy at this time. CTA chest 07/18/2025 personally reviewed: Nodular consolidative process appreciated in the right upper lobe as well as right middle lobe Minimal right hilar and mediastinal lymphadenopathy 2D echo 07/19/2025: EF 60-65%, RV normal in size and function placed on Vancomycin + Zosyn evaluated by Pulmonology service, Dr. Perez: clinically improved did not require oxygen supplementation Absolute eosinophil count 830 on 07/18/2025. Continue with montelukast on a daily basis even at home Recommend Augmentin for total of 14 days and complete the course of azithromycin for 5 days Repeat CXR in [address] chest in 6-8 weeks. If there is no improvement in the opacities then bronchoscopy could be considered. Recommend outpatient polysomnography Follow-up with pulmonary service in 2 weeks Please follow up pending serologic studies #Iron deficiency anemia Recent vaginal bleeding secondary to adenomyosis Iron level 10 given Venofer PO Iron BID repeat CBC, Iron level as outpatient #Vitamin D Deficiency - Vit D 8.5 VIt D 50k weekly x 6 check Vit D in 6 weeks #Sinus tachycardia suspect multifactorial, given pain/anxiety/noted illness CTA negative for PE monitor on tele continue IVF for now and additional management as above -resolved #Headache predominately over right ear ending right before occiput Tylenol po prn migraine cocktial prn q6h (ketorlac, benadryl, reglan) CT head and neck: unrevealing outpatient follow up plan of care discussed with patient and in detail and at length all questions answered they are understanding, agreeable, comfortable with the plan of care Notes For Next Care Provider Medication Changes From Visit per medical reconciliation form Admission HPI Per Admitting Provider Ms Dawson is a 24 year old woman with past medical history remarkable for PCOS, adenomyosis, dysmenorrhea, obesity presented to [facility] due to headache and chest pain. Patient states that she has felt generally poor since Saturday of last week, 07/12. She states that she has felt generally fatigued and tired, noting mostly low grade fevers with a TMAX at home of 101.6 F. She notes that come Saturday she started to feel "nerve twinges" on right side of head over her ear, like sharp jabs in which ibuprofen helps. She denies an associated visual disturbance. She states its persistent however with fluctuating intensity. She then notes pleuritic chest pain that started on Saturday--worse with inhalation and sharp/stabbing in nature. Ultimately, the persistent pleuritic pain and headache prompted her presentation. She denies cough, palpitations, sputum production of any kind, sinus congestion. Reports general malaise and sweats only after she takes ibuprofen. Denies any urinary or bowel changes. Denies any joint aches or pains. She notes that she does not take medications. She was recently diagnosed with anemia and adenomyosis after 3 months of constant bleeding. She underwent biopsy on 07/07 and stopped bleeding on 07/12. She is not on any medications or any supplements. She reports stable weight. She does not have a family history of heart disease, lung disease, malignancy, or autoimmune/bleeding disorders. She denies any recent travel of any kind, she denies sick contacts. Her kids do not attend daycare. She is not exposed to high risk populations like homeless or incarcerated. She does not and has never used any inhalational substances, she denies any IV/inhalational drug use. no history of reactive lung disease. Denies dental concerns. Denies rash or skin changes. Denies edema. She uses EtOH occasionally. She is a stay at home mother. On 06/20, labs were obtained by Pedro Sorto with WBC at 12 and Hgb 10.5. In the ED, vitals were notable for BP of 110s-140s HR of 90s-110s and O2 sat of high 90s on room air, afebrile Imaging revealed notable nodular opacities on CXR and CT chest with prominent opacities in RUL with some focus of internal cavitation in additional to right hilar and mediastinal LAD; no PE, CTA head/neck wnl Labs with WBC of 13.6, hgb of 9.5, procal 0.07, crp 10.26, ESR 98 , ddimer 710 EKG reviewed with Qtc 388, sinus tachycardia noted ED interventions: vanc, cefepime 2L IVF Patient to be admitted to [facility] for further evaluation and management of pleuritic chest pain iso pulmonary cavitary lesions Admission Exam Per Admitting Provider GENERAL APPEARANCE: AxOx4, generally well-appearing Female, no acute distress. HEENT: NC, AT. MMM. EOMI, pale conjunctiva, oropharynx clear. NECK: Supple without lymphadenopathy. No stiffness or restricted ROM. HEART: tachycardic, normal S1/S1, no m/r/g LUNGS: CTAB, moving air well. No crackles or wheezes are heard. good airway entry ABDOMEN: Soft, nontender, nondistended with good bowel sounds heard. BACK: No CVAT, no obvious deformity. EXTREMITIES: Without cyanosis, clubbing or edema. NEUROLOGICAL: Grossly nonfocal. Alert and oriented, moving all 4 extremities. CN not formally tested but appear grossly intact. Skin: Warm and dry without any rash. Discharge Exam General- oriented x 3, not in distress, speaks in sentences with no effort or accessory muscle use Eyes- anicteric Neck- no JVD Lungs- clear breath sounds bilaterally, no rales/wheezes Heart- normal rate, regular rhythm; no murmurs Abdomen- normal bowel sounds, nondistended, soft, nontender Extremities- no pretibial edema, no calf tenderness Neuro- alert, oriented x 3; no gross focal neurologic deficits Skin- warm & dry Updated Medication List Medication Instructions Recorded Confirmed Type L.acidop,casei,lactis,rham-B.lact,deepak 1 cap PO DAILY 42 days #42 caps 07/20/25 Rx 625 mg (10 billion cell) capsule (Advanced Probiotic) amoxicillin 875 mg tablet 875 mg PO BID 13 days #26 tabs 07/20/25 Rx azithromycin 250 mg tablet 250 mg PO QAM 3 days #3 tabs 07/20/25 Rx ergocalciferol (vitamin D2) 1,250 1,250 mcg PO Q7D 5 days #1 cap 07/20/25 Rx mcg (50,000 unit) capsule ferrous sulfate 325 mg (65 mg 325 mg PO BID 30 days #60 tabs 07/20/25 Rx iron) tablet montelukast 10 mg tablet 10 mg PO HS 30 days #30 tabs 07/20/25 Rx Hospital Stay Data Consultations 07/18/25 14:54 ED Decision to Admit Stat 07/18/25 16:17 Consult Pulmonology Routine Diagnostic Imagining Performed Laboratory Results WBC 11.08 K/ul (4.8-10.8) H 07/20/25 09:38 RBC 3.53 M/uL (4.20-5.40) L 07/20/25 09:38 Hgb 8.6 g/dl (12.0-16.0) L 07/20/25 09:38 Hct 28.1 % (37.0-47.0) L 07/20/25 09:38 MCV 79.6 fL (80.0-100.0) L 07/20/25 09:38 MCH 24.4 pg (25.0-34.0) L 07/20/25 09:38 MCHC 30.6 g/dL (32.0-36.0) L 07/20/25 09:38 RDW Std Deviation 40.9 fL (36.4-46.3) 07/20/25 09:38 RDW Coeff of Charles 14.0 % (11.5-14.5) 07/20/25 09:38 Plt Count 379 K/uL (130-400) 07/20/25 09:38 MPV 9.2 fL (9.4-12.4) L 07/20/25 09:38 Immature Gran % (Auto) 1.1 % 07/20/25 09:38 Neut % (Auto) 75.7 % 07/20/25 09:38 Lymph % (Auto) 14.6 % 07/20/25 09:38 [place] % (Auto) 6.5 % 07/20/25 09:38 Eos % (Auto) 1.7 % 07/20/25 09:38 Baso % (Auto) 0.4 % 07/20/25 09:38 Reticulocyte % (Auto) 1.51 % (0.50-2.00) 07/18/25 14:12 Neut # (Auto) 8.39 K/uL (1.40-6.50) H 07/20/25 09:38 Lymph # (Auto) 1.62 K/uL (1.20-3.40) 07/20/25 09:38 [place] # (Auto) 0.72 K/uL (0.11-0.59) H 07/20/25 09:38 Eos # (Auto) 0.19 K/uL (0.00-0.50) 07/20/25 09:38 Baso # (Auto) 0.04 K/uL (0.00-0.20) 07/20/25 09:38 Reticulocyte # 0.050 10^6/uL (0.020-0.100) 07/18/25 14:12 Immature Gran # (Auto) 0.12 K/uL (0.01-0.20) 07/20/25 09:38 ESR 98 mm/hr (0-20) H 07/18/25 12:20 Immature Retic Fraction 19.0 % (2.3-15.9) H 07/18/25 14:12 Retic Hgb Content 20.4 pg (28.2-36.6) L 07/18/25 14:12 D-Dimer 710 ug/L FEU (0-500) H* 07/18/25 12:20 Sodium 136 mmol/L (136-145) 07/20/25 09:38 Potassium 3.9 mmol/L (3.5-5.1) 07/20/25 09:38 Chloride 101 mmol/L (98-107) 07/20/25 09:38 Carbon Dioxide 29 mmol/L (21-32) 07/20/25 09:38 Anion Gap 6 (3-11) 07/20/25 09:38 BUN 5 mg/dl (6-23) L 07/20/25 09:38 Creatinine 0.69 mg/dl (0.6-1.2) 07/20/25 09:38 Est Cr Clr Drug Dosing 155.5 ml/min 07/20/25 09:38 eGFR 122.67 07/20/25 09:38 BUN/Creatinine Ratio 7.2 (10-20) L 07/20/25 09:38 Glucose 127 mg/dl (70-99(Fasting)) H 07/20/25 09:38 Calcium 9.3 mg/dl (8.6-10.3) 07/20/25 09:38 Iron 10 mcg/dl (35-150) L 07/18/25 15:40 TIBC 311 mcg/dl (250-450) 07/18/25 15:40 Transferrin 222 mg/dl (200-360) 07/18/25 15:40 Transferrin % Sat 3 % (15-50) L 07/18/25 15:40 Ferritin 40.0 ng/ml (8-388) 07/18/25 15:40 Total Bilirubin 0.5 mg/dl (0.2-1.0) 07/20/25 09:38 AST 20 U/L (13-39) 07/20/25 09:38 ALT 26 U/L (7-52) 07/20/25 09:38 Alkaline Phosphatase 124 U/L (34-104) H 07/20/25 09:38 Troponin I High Sens 4.5 pg/ml (0-14) 07/18/25 12:20 C-Reactive Protein 10.26 mg/dl (0-0.5) H 07/18/25 12:20 Total Protein 7.8 gm/dl (6.0-8.3) 07/20/25 09:38 Albumin 3.5 gm/dl (3.4-5.0) 07/20/25 09:38 Globulin 4.3 gm/dl (2.5-4.0) H 07/20/25 09:38 Albumin/Globulin Ratio 0.8 (0.9-2) L 07/20/25 09:38 Lipase 4 U/L (11-82) L 07/18/25 12:20 Vitamin B12 193 pg/ml (180-914) 07/18/25 15:40 25-OH Vitamin D Total 8.5 ng/ml (30-100) L 07/18/25 15:40 Folate > 22.30 ng/ml (>5.38) 07/18/25 15:40 Procalcitonin 0.07 ng/ml (0-0.5) 07/18/25 12:20 TSH 1.756 uIu/ml (0.300-4.500) 07/18/25 15:40 HCG, Qual Negative (Negative) 07/18/25 12:20 Urine Color Yellow 07/18/25 Unknown Urine Appearance Clear (Clear) 07/18/25 Unknown Urine pH 6.5 (4.5-7.5) 07/18/25 Unknown Ur Specific [place] > 1.045 (1.000-1.030) H 07/18/25 Unknown Urine Protein Negative (Negative) 07/18/25 Unknown Urine Glucose (UA) Negative (Negative) 07/18/25 Unknown Urine Ketones Negative (Negative) 07/18/25 Unknown Urine Blood 2+ (Negative) H 07/18/25 Unknown Urine Nitrite Negative (Negative) 07/18/25 Unknown Urine Bilirubin Negative (Negative) 07/18/25 Unknown Urine Urobilinogen Negative (Negative) 07/18/25 Unknown Ur Leukocyte Esterase 1+ (Negative) H 07/18/25 Unknown Urine WBC (Auto) 21-50 /hpf (0-5) H 07/18/25 Unknown Urine RBC (Auto) 6-10 /hpf (0-2) H 07/18/25 Unknown U Hyaline Cast (Auto) 0-2 /lpf (0-2) 07/18/25 Unknown U Epithel Cells (Auto) 3-5 /hpf (0-2) H 07/18/25 Unknown Urine Bacteria (Auto) 1+ (None Seen) H 07/18/25 Unknown Urine Comment 07/18/25 Unknown Nasal Screen MRSA (PCR) Negative (Negative) 07/18/25 Unknown Adenovirus (PCR) Not Detected (NotDetected) 07/18/25 12:50 Anaplasma Smear See Comment 07/18/25 14:12 B. pertussis DNA (PCR) Not Detected (NotDetected) 07/18/25 12:50 B.parapertussis DNA PCR Not Detected (NotDetected) 07/18/25 12:50 Lyme Disease Screen Negative (Negative) 07/18/25 12:20 C. pneumoniae DNA (PCR) Not Detected (NotDetected) 07/18/25 12:50 Coronavirus OC43 (PCR) Not Detected (NotDetected) 07/18/25 12:50 Coronavirus HKU1 (PCR) Not Detected (NotDetected) 07/18/25 12:50 Coronavirus 229E (PCR) Not Detected (NotDetected) 07/18/25 12:50 SARS-CoV-2 (PCR) Not Detected (NotDetected) 07/18/25 12:50 Coronavirus NL63 (PCR) Not Detected (NotDetected) 07/18/25 12:50 HIV 1&2 Ab/P24 Ag 4thGn Negative (Negative) 07/18/25 15:40 Human Metapneumovir PCR Not Detected (NotDetected) 07/18/25 12:50 Influenza Type A (PCR) Not Detected (NotDetected) 07/18/25 12:50 Influenza Type B (PCR) Not Detected (NotDetected) 07/18/25 12:50 M. pneumoniae (PCR) Not Detected (NotDetected) 07/18/25 12:50 Parainfluenza 1 (PCR) Not Detected (NotDetected) 07/18/25 12:50 Parainfluenza 2 (PCR) Not Detected (NotDetected) 07/18/25 12:50 Parainfluenza 3 (PCR) Not Detected (NotDetected) 07/18/25 12:50 Parainfluenza 4 (PCR) Not Detected (NotDetected) 07/18/25 12:50 RSV (PCR) Not Detected (NotDetected) 07/18/25 12:50 Entero/Rhino (PCR) Not Detected (NotDetected) 07/18/25 12:50 TB Test (QFT) Gold Plus NEGATIVE (Negative) 07/18/25 14:43 TB Test (QFT) Nil 0.046 IU/mL 07/18/25 14:43 TB Test (QFT) Mitogen 10.000 IU/mL 07/18/25 14:43 TB Test (QFT) Ag 1 0.042 IU/mL 07/18/25 14:43 TB Test (QFT) Ag 2 0.039 IU/mL 07/18/25 14:43 Impressions Chest X-Ray 07/18/25 11:34 SINGLE VIEW CHEST CLINICAL HISTORY: Chest pain FINDINGS: An AP, portable, upright chest radiograph is obtained. No prior studies are available for comparison at the time of dictation. The cardiomediastinal silhouette is unremarkable. Airspace consolidation is seen throughout the right mid to lower lung and at the left lung base. No large pleural effusion or pneumothorax is identified. The bony thorax is grossly intact. IMPRESSION: 1. Airspace consolidation in the right mid to lower lung is typical for pneumonia. Clinical correlation will be required and radiographic follow-up to resolution is recommended. 2. There is also mild consolidative change at the left lung base. ACT 112: Negative or not required by law. Electronically signed by: Deric Burton M.D. 07/18/2025 1:29 PM Chest CTA 07/18/25 13:26 CT pulmonary angiogram with IV contrast History: Chest pain COMPARISON: None TECHNIQUE: CT angiography of the chest was performed without IV contrast followed by IV contrast, including 3D post processing CTA image reconstruction. Dose reduction techniques were achieved by using automatic exposure control and/or adjustment of mA and/or kV according to patient size and/or use of iterative reconstruction technique. FINDINGS: Diagnostic quality: Adequate There is no evidence for pulmonary embolism. The heart is not enlarged. There is no pericardial effusion. Mildly prominent right hilar lymph nodes and right paratracheal lymph nodes, which may be reactive. The central tracheobronchial tree is clear. Probably, rounded consolidative opacities are seen throughout the right upper lobe. A few of these nodules demonstrate a tiny focus of internal cavitation. There is no pleural effusion. Limited visualized upper abdomen. No destructive osseous changes are seen. IMPRESSION: No evidence for pulmonary embolism. Prominent nodular opacities throughout the right upper lobe, a few with a tiny focus of cavitation, likely are infectious. Mild right hilar and right mediastinal lymphadenopathy may be reactive. Electronically signed by Alverto Carlson 07-18-2025 2:20 PM Head CTA 07/18/25 13:[address] without contrast CT angiogram of the neck CT angiogram of the brain with contrast Provided History: headache Comparison: None Technique: HEAD CT: Using multidetector thin collimation helical acquisition technique, axial, coronal and sagittal CT images from the skull base to the vertex were obtained without intravenous contrast. HEAD and NECK CTA: During rapid bolus intravenous injection of nonionic contrast material, axial images were obtained using thin collimation multidetector helical technique from the base of the neck through the of vertex of the head. This CT angiogram data was reconstructed at thin intervals with mild overlap. 3D reconstructions were obtained. The axial source images, multiplanar reformations, 3D reconstructions in both maximum intensity projection display and volume rendered models were reviewed. Dose reduction techniques were achieved by using automatic exposure control and/or adjustment of mA and/or kV according to patient size and/or use of iterative reconstruction technique. Findings: Head CT: There is no intracranial hemorrhage, mass effect, or midline shift. [place]/white matter differentiation in both cerebral hemispheres is preserved. Ventricles are proportionate to the cerebral sulci. Head CTA demonstrates no aneurysm or stenosis of the major intracranial arteries. Neck CTA demonstrates no stenosis of the major cervical arteries. The origins of the great vessels from the aortic arch are patent. No mass is noted within the visualized portions of the cervical soft tissues or lung apices. Impression: 1. Head CTA demonstrates no aneurysm or stenosis of the major intracranial arteries, 2. Neck CTA demonstrates no stenosis of the major cervical arteries. 3. No intracranial hemorrhage on the noncontrast head CT. Electronically signed by Alverto Carlson 07-18-2025 2:20 PM Neck CTA 07/18/25 13:[address] without contrast CT angiogram of the neck CT angiogram of the brain with contrast Provided History: headache Comparison: None Technique: HEAD CT: Using multidetector thin collimation helical acquisition technique, axial, coronal and sagittal CT images from the skull base to the vertex were obtained without intravenous contrast. HEAD and NECK CTA: During rapid bolus intravenous injection of nonionic contrast material, axial images were obtained using thin collimation multidetector helical technique from the base of the neck through the of vertex of the head. This CT angiogram data was reconstructed at thin intervals with mild overlap. 3D reconstructions were obtained. The axial source images, multiplanar reformations, 3D reconstructions in both maximum intensity projection display and volume rendered models were reviewed. Dose reduction techniques were achieved by using automatic exposure control and/or adjustment of mA and/or kV according to patient size and/or use of iterative reconstruction technique. Findings: Head CT: There is no intracranial hemorrhage, mass effect, or midline shift. [place]/white matter differentiation in both cerebral hemispheres is preserved. Ventricles are proportionate to the cerebral sulci. Head CTA demonstrates no aneurysm or stenosis of the major intracranial arteries. Neck CTA demonstrates no stenosis of the major cervical arteries. The origins of the great vessels from the aortic arch are patent. No mass is noted within the visualized portions of the cervical soft tissues or lung apices. Impression: 1. Head CTA demonstrates no aneurysm or stenosis of the major intracranial arteries, 2. Neck CTA demonstrates no stenosis of the major cervical arteries. 3. No intracranial hemorrhage on the noncontrast head CT. Electronically signed by Alverto Carlson 07-18-2025 2:20 PM Pending Results Patient Have Any Pending Studies at Discharge: Yes Discharge Instructions Given to Patient (Per Discharging Provider) PLEASE REFER TO YOUR NEW MEDICATION LIST AND FOLLOW INSTRUCTIONS CAREFULLY. YOUR NEW MEDICATIONS INCLUDE: AZITHROMYCIN, AUGMENTIN- antibiotics for pneumonia - take a probiotic daily for at least 6 weeks, include Yogurt in your daily diet as well - Call your primary care physician immediately if you develop diarrhea so they can be tested for C. difficile infection Iron supplement- for anemia secondary to low iron level Vitamin D supplement- for vitamin D deficiency Montelukast- for possible allergy component of pneumonia You need to have a repeat chest x-ray in 10 days to reevaluate your pneumonia. You also need to have a repeat CT scan of your chest in 6 to 8 weeks. If there is no improvement in the opacities, then bronchoscopy could be considered. It is also recommended that you undergo an outpatient polysomnography or sleep study. PLEASE CALL YOUR PRIMARY CARE PHYSICIAN OR RETURN TO THE ER IF WITH WORSENING OF SYMPTOMS, INCLUDING Shortness of breath, fevers or chills, sputum production, chest pain, diarrhea, FOLLOW UP WITH PRIMARY CARE PHYSICIAN OUTLINED ABOVE. Total Time Total Time Spent Total Time Spent (In Minutes): 50 minutes
[2025-07-20 11:32] VITALS: BP 119/83; PULSE 88; TEMP 98.2; O2SAT 99
[2025-07-20] MEDS ORDERED: MONTELUKAST SODIUM 10 MG TABLET PO SCH (21:00)
== END 2025-07-20 13:10 | disposition home or self-care (01) | DRG 194 ==
LOC: ED 11:26 → SUATTDRO 15:12 → 2N 15:12